=== PATIENT | female | born 1945 | race Caucasian/White ===

== ENCOUNTER 2019-08-21 13:21 | Outpatient (RCR) | payer MEDICARE, OTHER, SELFPAY ==
--- NOTE | 2019-08-21 14:38 | PTOPEVAL ---
Thank you for referring this patient to [facility]. Please review, sign, date and return this plan of care ESTELA. I agree with and certify that the following plan of care is medically necessary. Referring Physician Date Admitting Provider: Attending Provider: PHYSICIAN NOT ON STAFF Referring Provider: *PT Outpatient Evaluation Start: 08/21/19 13:42 Freq: Status: Active Protocol: Document 08/21/19 13:43 [facility] (Rec: 08/21/19 14:15 Rosal[facility] [email or web address]) Therapy Assessment Status Assessment Status Assessment Status Evaluation Evaluation Information Problem Diagnosis L knee TKA revision Onset 08/15/19 Additional Evaluation Detail revision took place on . however, patient is still having complications with knee and was sent back to therapy by her md. Subjective Information patient reports since her last Query Text:As Reported By Patient/ bout of therapy, she has been Family struggling with her balance, strength, and ambulation. she reports she has been much worse since may of 2019. she reports she is struggling to get up and walk without pain or limping. she reports she has a large amount of pain in the L knee. she reports she uses a cane around her home. she reports she also has pain after driving/being in a car. Prior Level of Function Comments Additional Prior Level of Function patient reports she has been Comments battling issues with her L knee since her surgery on to revise her L knee replacement. Pain Assessment Timing of Pain Assessment Timing of Pain Assessment Assessment Pain Scale Pain Scale Used Numeric (1 - 10) Self Report Pain Assessment Left Knee(s) Reported Pain Level 0 Current Pain Intensity 0 Lowest Pain Intensity 0 Greatest Pain Intensity 10 Pain Aggravating Factors Changing Position,Prolonged Position,Walking,Weight Bearing/Standing,Other Pain Aggravating Factors Other Pain Aggravating Factors getting up to walk Pain Score Pain Score 0: Self Report Lower Extremity Range of Motion
--- NOTE | 2019-09-27 13:18 | PTOPEVAL ---
Thank you for referring Danisha Babb to [facility]. Please review, sign, date and return this plan of care ESTELA. I agree with and certify that the following plan of care is medically necessary. Referring Physician Date Admitting Provider: Attending Provider: PHYSICIAN NOT ON STAFF Referring Provider: *PT Outpatient Evaluation Start: 08/21/19 13:42 Freq: Status: Discharge Protocol: Document 09/20/19 14:00 NELIDA (Rec: 09/20/19 14:47 [facility] [id number]) Therapy Assessment Status Assessment Status Assessment Status Discharge Evaluation Information Problem Diagnosis L knee TKA revision Additional Evaluation Detail lefs = 91% functionally declined Subjective Information patient reports she is Query Text:As Reported By Patient/ painful and tight this date. Family she reports she feels no improvement with therapy. she reports she is anxious to find out her next steps from her MD reguarding her L knee condition. Pain Assessment Timing of Pain Assessment Timing of Pain Assessment Assessment Pain Scale Pain Scale Used Numeric (1 - 10) Self Report Pain Assessment Left Knee(s) Reported Pain Level 9 Greatest Pain Intensity 10 Pain Aggravating Factors Exercise/Activity,Prolonged Position,Stair Climbing, Walking,Weight Bearing/ Standing Pain Score Pain Score 9: Self Report Lower Extremity Range of Motion Knee Range of Motion Left Knee Flexion Range of Motion - Active 100 Knee Extension Range of Motion - Active -3 Query Text: Lower Extremity Muscle Strength Testing Hip Strength Left Hip Flexion Strength 4- Good - Knee Strength Left Knee Flexion Strength 4+ Good + Knee Extension Strength 3+ Fair + Knee Strength Comments increased pain and lack of full R knee extension with mmt sitting eob. compensated trunk extension to improve mm strength and knee extension. Muscle Length Testing Muscle Length Testing Left Hamstring Length 5 Query Text:(90 - 90 Position) Right Hamstring Length 5 Query Text:(90 - 90 Position) Palpation Assessment Palpation Palpation tenderness to palpation and reported pain along the middle of the L patella and along the medial, la
== END 2019-09-20 09:31 | disposition home or self-care (01) ==
LOC: CHSPT 13:21
PROVIDERS: PCP Family Medicine
DX: M25.462 Effusion, left knee (principal); Z96.652 Presence of left artificial knee joint
CPT/HCPCS: 97110; 97161; 97530

== ENCOUNTER 2021-10-14 07:58 | Outpatient (RCR) | payer MEDICARE, OTHER, SELFPAY ==
--- NOTE | 2021-10-14 08:58 | PTOPEVAL ---
Thank you for referring Danisha Babb to [facility].? The patient is scheduled to be seen for therapy? ____x/week for ___ weeks. Please review, sign, date and return this plan of care ESTELA. I agree with and certify that the following plan of care is medically necessary. Referring Physician Date Admitting Provider: Attending Provider: SOPHY ADAM Referring Provider: *PT Outpatient Evaluation Start: 10/14/21 08:02 Freq: Status: Active Protocol: Document 10/14/21 08:03 [facility] (Rec: 10/14/21 08:56 [facility] [id number]) Therapy Assessment Status Assessment Status Assessment Status Evaluation Evaluation Information Problem Diagnosis s/p L TKA revision Onset 09/01/21 Additional Evaluation Detail LEFS = 91% functionally declined Subjective Information patient reports she had her Query Text:As Reported By Patient/ 6th TKA revision on 09/01/21. Family she reports she now has a longer aline on both ends into her L LE. she reports she only had the top portion of the knee revised on this date. she is in a hinged knee brace for 6 weeks starting 10/12/21. she reports she has pain in the L hip/upper thigh. Pain Assessment Timing of Pain Assessment Timing of Pain Assessment Assessment Pain Scale Pain Scale Used Numeric (1 - 10) Self Report Pain Assessment Left Thigh(s) Reported Pain Level 2 Pain Frequency Acute,Continuous Greatest Pain Intensity 4 Pain Score Pain Score 2: Self Report Interventions Used Interventions Used By Clinicians Education,Ice,Rest Lower Extremity Range of Motion General Lower Extremity Range of Motion Gross Lower Extremity Range of Motion 0-30 degrees arom L knee Comments mobility (limited to 30 degrees for 1st 2 weeks in hinged brace). Lower Extremity Muscle Strength Testing General Lower Extremity Strength Gross Lower Extremity Strength patient able to complete SLR of the L LE without extension lag. 4/5 L hip flex strength Muscle Length Testing Muscle Length Testing Left Hamstring Length 0 Query Text:(90 - 90 Position) Right Hamstring Length 0 Query Text:(90 - 90 Position) Palpation Assessment Palpation Palpation patient presents with pitting edema of the L lower leg. jean
--- NOTE | 2021-11-12 13:20 | PTOPEVAL ---
Thank you for referring Danisha Babb to [facility].? The patient is scheduled to be seen for therapy? ____x/week for ___ weeks. Please review, sign, date and return this plan of care ESTELA. I agree with and certify that the following plan of care is medically necessary. Referring Physician Date Admitting Provider: Attending Provider: SOPHY ADAM Referring Provider: *PT Outpatient Evaluation Start: 10/14/21 08:02 Freq: Status: Active Protocol: Document 11/12/21 08:00 [facility] (Rec: 11/12/21 09:03 [facility] [id number]) Therapy Assessment Status Assessment Status Assessment Status Progress Evaluation Information Problem Diagnosis s/p L TKA revision Onset 09/01/21 Subjective Information Pt reports that she has been Query Text:As Reported By Patient/ able to bend her knee to Family ninety degrees per her physician. She reports that she has trouble sleeping due to the uncomfortability of her knee brace. She is going back to her physician on November 16. She is hopeful that she can take the brace off. Overall, she is feeling weak due to the brace supporting herself rather than the muscles of her leg. She states that her leg gives out on her on occasion, and she never knows when it will give out on her. Pain Assessment Timing of Pain Assessment Timing of Pain Assessment Pre-Treatment Self Report Self Report Pain Level 0 Pain Score Pain Score 0: Self Report Lower Extremity Range of Motion Knee Range of Motion Left Knee Flexion Range of Motion - Active 81 Knee Flexion Range of Motion - Passive 86 Knee Extension Range of Motion - Active 0 Query Text: Lower Extremity Muscle Strength Testing Hip Strength Left Hip Flexion Strength 4 Good Hip Abduction Strength 4 Good Knee Strength Left Knee Flexion Strength 4+ Good + Knee Extension Strength 3+ Fair + Gait Assessment Gait Pattern Assessment Other Gait Observations patient continues to be limited to ambulation mechanics due to orders keeping the knee in extension at all times when up. General Exercise General Exercises Exercise Description Ther ex Query Text:Record Sets, Reps, -3
--- NOTE | 2021-11-25 21:16 | PTOPEVAL ---
Thank you for referring Danisha Babb to [facility].? The patient is scheduled to be seen for therapy? ____x/week for ___ weeks. Please review, sign, date and return this plan of care ESTELA. I agree with and certify that the following plan of care is medically necessary. Referring Physician Date Admitting Provider: Attending Provider: SOPHY ADAM Referring Provider: *PT Outpatient Evaluation Start: 10/14/21 08:02 Freq: Status: Active Protocol: Document 11/18/21 15:00 [facility] (Rec: 11/25/21 21:16 [facility] Filej) Therapy Assessment Status Assessment Status Assessment Status Re-evaluation Evaluation Information Problem Diagnosis s/p L TKA revision Onset 09/01/21 Additional Evaluation Detail LEFS = 70% functionally declined Subjective Information patient reports she feels Query Text:As Reported By Patient/ Good this date. she reports Family she has been lifted of any restriciotns for rom of the L knee. she reports she is no longer required to wear the brace. Pain Assessment Timing of Pain Assessment Timing of Pain Assessment Assessment Self Report Self Report Pain Level 0 Pain Score Pain Score 0: Self Report Lower Extremity Range of Motion Knee Range of Motion Left Knee Flexion Range of Motion - Active 95 Knee Flexion Range of Motion - Passive 105 Knee Extension Range of Motion - Active 0 Query Text: Lower Extremity Muscle Strength Testing General Lower Extremity Strength Gross Lower Extremity Strength no extension lag with the L LEin SLR Hip Strength Left Hip Flexion Strength 4 Good Hip Abduction Strength 4 Good Knee Strength Left Knee Flexion Strength 4+ Good + Knee Extension Strength 4- Good - Gait Assessment Gait Pattern Assessment Other Gait Observations patient presents to skilled PT ambulating without a brace and with no AD. she ambulates with decreased L knee flexion during gait cycle and overall continues slight L LE circumduction and knee extension at all times out of habit. patient ambulates up 4in step with the L LE this date. General Exercise General Exercises Exercise Description see daily note. Query Text:Record Sets, Reps, Resistance, and Position PT Clinical Summary
--- NOTE | 2021-12-17 12:05 | PTOPEVAL ---
Thank you for referring Danisha Babb to [facility].? The patient is scheduled to be seen for therapy? 1x/week for 6 visits. Please review, sign, date and return this plan of care ESTELA. I agree with and certify that the following plan of care is medically necessary. Referring Physician Date Admitting Provider: Attending Provider: SOPHY ADAM Referring Provider: *PT Outpatient Evaluation Start: 10/14/21 08:02 Freq: Status: Active Protocol: Document 12/17/21 11:00 [facility] (Rec: 12/17/21 12:05 [facility] [id number]) Therapy Assessment Status Assessment Status Assessment Status Progress Evaluation Information Problem Diagnosis s/p L TKA revision Onset 09/01/21 Subjective Information Pt reports that her knee is Query Text:As Reported By Patient/ slightly sore today, but not Family much more than normal. She reports that overall she is happy with the progress of her L knee. She reports that she still feels quite limited in walking. She reports that she feels her form isn't quite right, and she has difficulty with walking quickly and for extended periods of time. Pain Assessment Timing of Pain Assessment Timing of Pain Assessment Pre-Treatment Pain Scale Pain Scale Used Numeric (1 - 10) Self Report Pain Assessment Left Thigh(s) Reported Pain Level 7 Pain Score Pain Score 7: Self Report Interventions Used Interventions Used By Clinicians Activity or ADL's,Exercise, Manual Therapy Techniques Lower Extremity Range of Motion General Lower Extremity Range of Motion Gross Lower Extremity Range of Motion L knee AROM: 0-105 Comments Lower Extremity Muscle Strength Testing General Lower Extremity Strength Gross Lower Extremity Strength R hip flexion: 5/5 L hip flexion: 4+/5 R knee extension: 5/5 L knee extension: 4+/5 Bilateral knee flexion: 5/5 Bilateral ankle dorsiflexion: 5/5 Extremity Circumference Assessment Circumference Assessment Location Left Circumference (cm) 46 Noninvolved Side Circumference (cm) 46 Gait Assessment Gait Assessment Additional Ambulation Comments Pt walks with SPC, decreased L stance time, trunk lean with L stance, decreased gait speed General Exercise General Exercises
--- NOTE | 2021-12-17 15:02 | PTOPEVAL ---
Thank you for referring Danisha Babb to [facility].? The patient is scheduled to be seen for therapy? 1x/week for 6 visits weeks. Please review, sign, date and return this plan of care ESTELA. I agree with and certify that the following plan of care is medically necessary. Referring Physician Date Admitting Provider: Attending Provider: Rosales Lewis Referring Provider: *PT Outpatient Evaluation Start: 10/14/21 08:02 Freq: Status: Active Protocol: Document 12/17/21 11:00 [facility] (Rec: 12/17/21 12:05 [facility] [id number]) Therapy Assessment Status Assessment Status Assessment Status Progress Evaluation Information Problem Diagnosis s/p L TKA revision Onset 09/01/21 Subjective Information Pt reports that her knee is Query Text:As Reported By Patient/ slightly sore today, but not Family much more than normal. She reports that overall she is happy with the progress of her L knee. She reports that she still feels quite limited in walking. She reports that she feels her form isn't quite right, and she has difficulty with walking quickly and for extended periods of time. Pain Assessment Timing of Pain Assessment Timing of Pain Assessment Pre-Treatment Pain Scale Pain Scale Used Numeric (1 - 10) Self Report Pain Assessment Left Thigh(s) Reported Pain Level 7 Pain Score Pain Score 7: Self Report Interventions Used Interventions Used By Clinicians Activity or ADL's,Exercise, Manual Therapy Techniques Lower Extremity Range of Motion General Lower Extremity Range of Motion Gross Lower Extremity Range of Motion L knee AROM: 0-105 Comments Lower Extremity Muscle Strength Testing General Lower Extremity Strength Gross Lower Extremity Strength R hip flexion: 5/5 L hip flexion: 4+/5 R knee extension: 5/5 L knee extension: 4+/5 Bilateral knee flexion: 5/5 Bilateral ankle dorsiflexion: 5/5 Extremity Circumference Assessment Circumference Assessment Location Left Circumference (cm) 46 Noninvolved Side Circumference (cm) 46 Gait Assessment Gait Assessment Additional Ambulation Comments Pt walks with SPC, decreased L stance time, trunk lean with L stance, decreased gait speed General Exercise General Exercises
--- NOTE | 2022-01-04 18:06 | PTOPEVAL ---
Thank you for referring Danisha Babb to [facility].? The patient is scheduled to be seen for therapy? 2x/week for 6 visits. Please review, sign, date and return this plan of care ESTELA. I agree with and certify that the following plan of care is medically necessary. Referring Physician Date Admitting Provider: Attending Provider: Rosales Lewis Referring Provider: *PT Outpatient Evaluation Start: 10/14/21 08:02 Freq: Status: Active Protocol: Document 01/04/22 16:08 [facility] (Rec: 01/04/22 18:06 [facility] [id number]) Therapy Assessment Status Assessment Status Assessment Status Progress Evaluation Information Problem Diagnosis s/p L TKA revision Onset 09/01/21 Subjective Information Pt reports to physical therapy Query Text:As Reported By Patient/ after flare up of pain last Family week. She reports that she went to see her MD today and he would like to continue PT for 2x week for 12 visits total instead of 1x week for 6 visits. She reports he wants PT to focus on strengthening as she is still very weak in her R leg. She reports that her MD told her to walk with a walker to take some pressure off of her legs, but that she does not have any weight- bearing restrictions. Pain Assessment Timing of Pain Assessment Timing of Pain Assessment Pre-Treatment Pain Scale Pain Scale Used Numeric (1 - 10) Self Report Pain Assessment Left Thigh(s) Reported Pain Level 7 Pain Score Pain Score 7: Self Report Interventions Used Interventions Used By Clinicians Activity or ADL's,Education, Exercise Lower Extremity Range of Motion General Lower Extremity Range of Motion Gross Lower Extremity Range of Motion L knee extension: hyper 1 Comments L knee flexion: 105 Lower Extremity Muscle Strength Testing General Lower Extremity Strength Gross Lower Extremity Strength R hip flexion: 5/5 L hip flexion: 4+/5 R knee extension: 5/5 L knee extension: 4-/5 R knee flexion: 5/5 L knee flexion: 5/5 R ankle dorsiflexion: 5/5 L ankle dorsiflexion: 4/5 General Exercise General Exercises Exercise Description Ther Ex: Query Text:Record Sets, Reps, - bilater
--- NOTE | 2022-01-05 08:51 | PTOPEVAL ---
Thank you for referring Danisha Babb to [facility].? The patient is scheduled to be seen for therapy? 6x/week for 12 visits. Please review, sign, date and return this plan of care ESTELA. I agree with and certify that the following plan of care is medically necessary. Referring Physician Date Admitting Provider: Attending Provider: Rosales Lewis Referring Provider: *PT Outpatient Evaluation Start: 10/14/21 08:02 Freq: Status: Active Protocol: Document 01/04/22 16:08 [facility] (Rec: 01/04/22 18:06 [facility] [email or web address]) Therapy Assessment Status Assessment Status Assessment Status Progress Evaluation Information Problem Diagnosis s/p L TKA revision Onset 09/01/21 Subjective Information Pt reports to physical therapy Query Text:As Reported By Patient/ after flare up of pain last Family week. She reports that she went to see her MD today and he would like to continue PT for 2x week for 12 visits total instead of 1x week for 6 visits. She reports he wants PT to focus on strengthening as she is still very weak in her R leg. She reports that her MD told her to walk with a walker to take some pressure off of her legs, but that she does not have any weight- bearing restrictions. Pain Assessment Timing of Pain Assessment Timing of Pain Assessment Pre-Treatment Pain Scale Pain Scale Used Numeric (1 - 10) Self Report Pain Assessment Left Thigh(s) Reported Pain Level 7 Pain Score Pain Score 7: Self Report Interventions Used Interventions Used By Clinicians Activity or ADL's,Education, Exercise Lower Extremity Range of Motion General Lower Extremity Range of Motion Gross Lower Extremity Range of Motion L knee extension: hyper 1 Comments L knee flexion: 105 Lower Extremity Muscle Strength Testing General Lower Extremity Strength Gross Lower Extremity Strength R hip flexion: 5/5 L hip flexion: 4+/5 R knee extension: 5/5 L knee extension: 4-/5 R knee flexion: 5/5 L knee flexion: 5/5 R ankle dorsiflexion: 5/5 L ankle dorsiflexion: 4/5 General Exercise General Exercises Exercise Description Ther Ex: Query Text:Record Sets, Reps, - bilate
== END 2022-01-11 19:00 | disposition still patient (30) ==
LOC: CHSPT 07:58
DX: Z96.652 Presence of left artificial knee joint (principal)
CPT/HCPCS: 97014; 97016; 97110; 97112; 97140; 97161; 97530; G0283

== ENCOUNTER 2022-01-14 08:00 | Outpatient (RCR) | payer MEDICARE, OTHER, SELFPAY | END 2022-01-18 16:55 | disposition home or self-care (01) | LOC: CHSPT 08:00 | DX: Z47.1 Aftercare following joint replacement surgery (principal); Z96.652 Presence of left artificial knee joint; R42 Dizziness and giddiness | CPT/HCPCS: 97110; 97112 ==